=== PATIENT | male | born 1985 | race Caucasian/White ===

== ENCOUNTER 2023-04-02 18:33 | Emergency (ER) | payer MEDICAID, SELFPAY ==
[2023-04-02 18:50] VITALS: BP 108/53; PULSE 94; RESP 20; TEMP 36.4; O2SAT 99; BMI 24.1
--- NOTE | 2023-04-02 18:50 | ED.GENADULT ---
HPI - General Adult General Chief complaint: Nausea/Vomiting/Diarrhea Stated complaint: Abd pain/Vomiting blood Time Seen by Provider: 04/02/23 18:52 Source: patient and family Mode of arrival: ambulatory Limitations: no limitations History of Present Illness HPI narrative: 38 yo male with no sig PMH he is here with RLQ abdominal pain starting yesterday did travel up from [place] he then started with vomiting and diarrhea tonight and noted streak of blood in the vomit tonight. He had a headache so he took excedrin and tried to take pepto bismol. No thinners, prior surgeries, hx of GIB in past. No one else is sick. He did eat food at a hotel prior to illness. No hx of kidney stones. MD complaint: abdominal pain Onset (ago): day(s) (1) Location: abdomen Radiation: non-radiation Severity: severe Quality: stabbing Pain Consistency: constant Relieving factors: none Exacerbating factors: movement Associated symptoms: headaches, loss of appetite, malaise, nausea/vomiting and other (diarrhea) Treatments prior to arrival: other (pepto bismol, excedrin) Related Data Previous Rx's Medication Instructions Recorded famotidine 20 mg tablet (Pepcid) 20 mg PO BID abdominal discomfort 04/02/23 14 days #28 tabs morphine 15 mg immediate release 15 mg PO Q6H PRN pain #18 tabs 04/02/23 tablet ondansetron 4 mg disintegrating 4 mg PO Q8H PRN nausea and 04/02/23 tablet vomiting #20 tabs tamsulosin 0.4 mg capsule 0.4 mg PO DAILY 7 days #7 caps 04/02/23 Allergies Allergy/AdvReac Type Severity Reaction Status Date / Time No Known Allergies Allergy Verified 04/02/23 18:50 Review of Systems Review of Systems: Constitutional : No Fever, No Chills ENT/Mouth : No sore throat, No Rhinorrhea Eyes: No Swelling, No Redness Cardiovascular : No Chest Pain, No SOB, NoEdema Respiratory : No Cough, No Sputum, No Wheezing Gastrointestinal : Positive Nausea, Positive Vomiting, positive Diarrhea, positive abdominal Pain, No Hematochezia, No Melena Genitourinary : No Dysuria, No Urinary Frequency, No Hematuria, No Urgency Musculoskeletal : No joint pain, No Myalgias, No Joint Swelling Skin : No Skin Lesions, No rash Neuro : No Weakness, No Numbness, No Dizziness, No Headache Psych : No Anxiety/Panic, No Depression All other systems reviewed and are negative. [facility] Past Medical History Attestation statement: The following information was validated with the patient. Onset Date is defined in the Problem List Problems that require an onset date and time if occurred within 24 hrs of arrival to the ED Aortic Dissection and Rupture; Neurologic impairment; Cardiopulmonary Arrest; Endotracheal Intubation; Insertion or Replacement of Mechanical Circulatory Assist Device Medical History No pertinent past medical history Social History Social History (Updated 04/02/23 @ 19:16 by Maine Burgess DO) Patient Tobacco Use Status: Never used Tobacco Advance Directives: No Advance Directives Information Provided: No Physical Exam ED Vital Signs: Vital Signs - 24 hr 04/02/23 18:50 04/02/23 19:41 04/02/23 22:00 Temperature 97.5 F 98.3 F Pulse Rate 94 76 98 Respiratory Rate 20 20 29 H Blood Pressure 108/53 L 128/50 L 130/66 Pulse Oximetry 99 98 98 Oxygen Delivery Method Room Air Room Air Room Air BMI result Body Mass Index 24.1 Appearance: Alert. Oriented X3. active vomiting in pain mild acute distress. Eyes: Pupils equal, round and reactive to light. ENT: Pharynx normal. Neck: Normal inspection. Neck supple. CVS: Normal heart rate and rhythm. Pulses normal. Respiratory: No respiratory distress. Breath sounds normal. Abdomen: Soft and moderate ttp in R side of abdomen. Vomit seem pink and foamy not brb no clots. Skin: Skin warm and dry. Normal skin color. Normal skin turgor. Extremities: No lower extremity edema. No calf ttp Neuro: Oriented X 3. No motor deficit. No sensory deficit. Course Course Course Narrative: This is an RME: Additional HPI, ROS, PE not included below will be deferred to primary provider. 38 yo m presents w/ RLQ pain n,v X2 days. Recently traveled from [place]. Patient has been vomiting blood X 3 episodes today. Reports this pain is severe. Not on thinners. Took peptobismol Plan- labs, urine. abd pain Medications Administered Discontinued Medications Generic Name Dose Route Start Last Admin Trade Name Freq PRN Reason Stop Dose Admin Diphenhydramine HCl 25 mg 04/02/23 18:52 04/02/23 19:15 Diphenhydramine Hcl 50 Mg/Ml Vial IVPUSH 04/02/23 18:53 25 mg ONCE ONE Administration Famotidine 20 mg 04/02/23 18:52 04/02/23 19:14 Famotidine/Pf 20 Mg/2 Ml Vial IVPUSH 04/02/23 18:53 20 mg ONCE ONE Administration Sodium Chloride 1,000 mls @ 999 mls/hr 04/02/23 19:00 04/02/23 21:08 Ns IV 04/02/23 20:00 Infused .Q1H1M JEAN MARIE Infusion Sodium Chloride 1,000 mls @ 999 mls/hr 04/02/23 21:00 04/02/23 23:17 Ns IV 04/02/23 22:00 Infused .Q1H1M JEAN MARIE Infusion Iohexol 85 ml 04/02/23 20:12 04/02/23 20:14 Iohexol 350 Mg/Ml 100 Ml Infus..Btl IV 04/02/23 20:13 85 ml ONCE ONE Administration Metoclopramide HCl 10 mg 04/02/23 18:52 04/02/23 19:15 Metoclopramide Hcl 10 Mg/2 Ml Vial IVPUSH 04/02/23 18:53 10 mg ONCE ONE Administration Morphine Sulfate 4 mg 04/02/23 18:52 04/02/23 19:15 Morphine Sulfate 4 Mg/Ml Cartridge IVPUSH 04/02/23 18:53 4 mg ONCE ONE Administration Protocol Morphine Sulfate 15 mg 04/02/23 22:10 04/02/23 23:00 Morphine Sulfate Immed Release 15 Mg Tablet PO 04/02/23 22:11 15 mg ONCE ONE Administration Tamsulosin HCl 0.4 mg 04/02/23 20:59 04/02/23 21:19 Tamsulosin Hcl 0.4 Mg Capsule PO 04/02/23 21:00 0.4 mg ONCE ONE Administration Medical Decision Making Medical Decision Making MDM Narrative: 38 yo male with abdominal pain since yesterday now with n/v/d now with some pink tinge to sputum no stacy GIB no hx of GIB and no lower bleeding suspect burst capillary at this time will need basic labs, IVF, IV morphine for pain, UA viral panel and CT Scan for appendicitis, renal colic. Differential Diagnosis Differential Diagnoses: The differential diagnosis associated with the presentation includes gastritis, pancreatitis, appendicitis, renal colic, food toxicity, Admission/Observation Consideration of admission/observation: Escalation of care including admission/observation considered pain well controlled no UTI, at this time will DC home with medications and precautions to return, tolerating PO Lab Data MDM Lab Attestation statement: I reviewed the patient's lab results. 04/02/23 18:48 04/02/23 18:48 Labs: Lab Results 04/02/23 04/02/23 Range/Units 18:48 23:02 WBC 16.1 H (4.8-10.8) X10*3/uL RBC 4.76 (4.60-5.80) X10*6/uL Hgb 14.9 (14.0-18.0) g/dl Hct 43.9 (42.0-52.0) % MCV 92.2 (80.0-98.0) fL MCH 31.3 (27.0-33.0) pg MCHC 33.9 (31.0-36.0) g/dl RDW 12.8 (11.0-16.0) % Plt Count 315 (160-400) X10*3/uL MPV 10.3 (9.4-12.4) fL Immature Gran % (Auto) 1.4 H (0.0-0.4) % Neut % (Auto) 82.4 H (45-73) % Lymph % (Auto) 12.5 L (20-40) % [place] % (Auto) 3.2 (2-11) % Eos % (Auto) 0.1 (0-4) % Baso % (Auto) 0.4 (0-2) % Lymph # (Auto) 2.0 (1.2-4.9) X10*3/uL [place] # (Auto) 0.5 (0.1-1.2) X10*3/uL Eos # (Auto) 0.0 (0.0-0.4) X10*3/uL Baso # (Auto) 0.1 (0.0-0.2) X10*3/uL Abs Immat Gran (auto) 0.22 H (0.00-0.03) X10*3/uL Absolute Neuts (auto) 13.3 H (2.0-8.3) x10*3/uL Absolute Nucleated RBC 0.000 (0.0-0.012) X10*3/uL Nucleated RBC % (auto) 0.0 (0.0-0.2) /100WBC PT 11.5 (11.1-13.3) SEC INR 0.9 (0.9-1.1) Sodium 140 (135-145) mmol/L Potassium 4.0 (3.3-5.1) mmol/L Chloride 106 (96-108) mmol/L Carbon Dioxide 24 (22-29) mmol/L Anion Gap 14 (12-20) BUN 15 (9-16) mg/dL Creatinine 1.24 (0.5-1.4) mg/dL Estim Creat Clear Calc 88.6 Estimated GFR > 60 Random Glucose 124 H (60-115) mg/dL Calcium 9.6 (8.4-10.2) mg/dL Magnesium 2.0 (1.6-2.6) mg/dL Total Bilirubin 0.5 (0.0-1.0) mg/dL AST 17 (5-37) U/L ALT 19 (0-40) U/L Alkaline Phosphatase 65 (39-117) U/L Total Protein 7.2 (6.5-8.0) g/dL Albumin 4.3 (3.5-5.0) g/dL Lipase 26 (8-78) U/L Urine Color Yellow Urine Appearance Clear Urine pH 7.5 (5.0-9.0) Ur Specific [place] >= 1.030 H (1.005-1.025) Urine Protein Negative (Neg-Trace) mg/dL Urine Glucose (UA) Negative (Negative) mg/dL Urine Ketones Negative (Negative) mg/dL Urine Blood Small (1+) H (Negative) Urine Nitrite Negative (Negative) Ur Leukocyte Esterase Negative (Negative) Urine RBC 11-20 H (0-2) /HPF Urine WBC 0-5 (0-5) /HPF Ur Squamous Epith Cells 0-2 (0-2) /HPF Urine Bacteria None Seen (None Seen) Hyaline Casts 0-2 (0-2) /LPF Ethyl Alcohol < 10 mg/dL Independent Interpretation I performed an independent interpretation of an: CT Scan (ureterolithiasis) Radiology Impression Discussion of test interpretation with radiology: I have reviewed the radiologist's reading. Independent Historian Clinical information obtained from an independent historian. History obtained from or confirmed by: Spouse Prescription Management I considered prescription management with: Pain Medication and Other Critical Care Time Critical Care Time Critical Care Time: Yes Total Critical Care Time: 45 Attestation: pain improved with IV morphine, 2L of IVF, repeat assessments. I attest to this time spent taking care of the patient Discharge Plan Discharge Clinical Impression: Ureterolithiasis, Marielos-Sahu tear Patient Disposition: Home, Self-Care Instructions: Gastrointestinal Bleeding (ED), Ureteral Stones (ED) Additional Instructions: blood in vomit likely due to forceful vomiting - avoid nsaids like motrin, aspirin, naprosyn, aleve for the next 1 week. okay to take tylenol. drink 60 ounces of water a day. return for fevers, vomiting, inability to urinate, worsening pain no improvement or feeling as if you have not passed stone in next few days. can follow up with urology as well and schedule appointment. Prescriptions: New famotidine [Pepcid] 20 mg tablet 20 mg PO BID 14 Days Qty: 28 0RF tamsulosin 0.4 mg capsule 0.4 mg PO DAILY 7 Days Qty: 7 0RF morphine 15 mg tablet 15 mg PO Q6H PRN (Reason: pain) Qty: 18 0RF Rx Instructions: partial fill okay; Partial Fill upon patient request. ondansetron 4 mg tablet,disintegrating 4 mg PO Q8H PRN (Reason: nausea and vomiting) Qty: 20 0RF Referrals: Rodrigo Garcia MD [Physician] - (follow up if not better in next few days if you feel you have not passed stone) Stand Alone Forms: Work/School Release
--- NOTE | 2023-04-02 19:23 | PC.NURSE ---
pt medciated per may.
[2023-04-02 19:41] VITALS: BP 128/50; PULSE 76; RESP 20; O2SAT 98
--- NOTE | 2023-04-02 19:57 | PC.NURSE ---
Addendum entered by Yanci Ocasio 04/02/23 20:04: from pain. pt normal sinus on tele 89-95. pt reporting 10/10 pain at this time. Original Note: late entry- this rn assumed care of pt at 1900. pt a&ox4, respirations even and unlabored, pt reporting onset of right sided abdominal pain and pressure in the lower abdomen for one day. pt denies constipation and denies urinary issues at this time. pt reports nausea and vomiting fro m
[2023-04-02 22:00] VITALS: BP 130/66; PULSE 98; RESP 29; TEMP 36.8; O2SAT 98
--- NOTE | 2023-04-02 23:10 | PC.NURSE ---
pt ambulated to bathroom with steady gait, urine sample obtained and sent to lab at this time.
== END 2023-04-03 00:13 | disposition home or self-care (01) ==
PROVIDERS: Emergency Provider Emergency Medicine; PCP Internal Medicine
DX: N20.1 Calculus of ureter (principal); K22.6 Gastro-esophageal laceration-hemorrhage syndrome; R11.2 Nausea with vomiting, unspecified; R10.9 Unspecified abdominal pain; Z79.899 Other long term (current) drug therapy
CPT/HCPCS: 36415; 74177; 80053; 80307; 81001; 83690; 83735; 85025; 85610; 96361; 96374; 96375; 99285; J1200; J2270; J2765; Q9967